=== PATIENT | male | born 1995 | race Caucasian/White ===

== ENCOUNTER → 2020-03-28 | Outpatient (REF) | payer OTHER ==
[2020-03-28 18:30] LABS: CHLAMYDIA DNA AMPLIFICATION NEGATIVE (NEGATIVE); GC DNA AMPLIFICATION NEGATIVE (NEGATIVE)
== END ==
LOC: M LAB REF 16:28
PROVIDERS: ATTEND Physician Assistant
DX: N45.1 Epididymitis (principal)

== ENCOUNTER → 2020-04-09 | Outpatient (CLI) | payer BC, OTHER ==
--- NOTE | 2020-04-09 16:16 | REP ---
INDICATION: EIPIDIDYMITIS. COMPARISON: None. TECHNIQUE: High-resolution bilateral scrotal sonography. FINDINGS: Testicular parenchyma is homogeneous. No intratesticular mass lesion is seen on either side. Right testicular dimensions are 4.2 x 1.9 x 2.7 cm. The left testis measures 4.3 x 2.3 x 3.2 cm. There is a single slightly prominent caliber vein located posterior to the left testis but no annelise varicocele. There is a 8 mm cyst in the right epididymis. Testicular Doppler flow is present bilaterally. Resistive indices are normal, 0.62 on the right and 0.57 on the left. IMPRESSION: Small right-sided epididymal cyst. Otherwise negative scrotal sonography. <Electronically signed by Rolando Thao > 04/09/20 [id number]
== END ==
LOC: M RAD 11:55
PROVIDERS: ATTEND Physician Assistant
DX: N45.1 Epididymitis (principal)